=== PATIENT | male | born 1955 | race Caucasian/White ===

== ENCOUNTER 2018-05-26 10:24 | Emergency (ER) | payer MEDICARE ==
[~2018-05-26] VITALS: Ht 167.6 cm; Wt 70.0 kg
[~2018-05-26 10:24] MED LIST: HYDR25TA6 PO; MAG355OR14 PO; ONDA4TAB8 PO
[2018-05-26 10:29] VITALS: Ht 167.6 cm; Wt 70.0 kg
[2018-05-26] MEDS ORDERED: SOD CHLORIDE 0.9% 1,000 ML IV STA (11:05)
[2018-05-26] MEDS ORDERED: NIFE90TA21 PO (11:37)
[2018-05-26] MEDS ORDERED: LISI-471 PO (11:37)
[2018-05-26] MEDS ORDERED: METO100T11 PO (11:37)
[2018-05-26] MEDS ORDERED: CLON0.2T5 PO (11:38)
[2018-05-26] MEDS ORDERED: KETOROLAC 15 MG INJ IV STA (13:27)
[2018-05-26] MEDS ORDERED: ACETAMINOPHEN 325 MG TAB PO ONE (13:30)
--- NOTE | 2018-05-26 13:50 | ERD ---
ER Documentation Chief Complaint Chief Complaint BIB RA FOR EVAL OF BILATERAL LEG WEAKNESS STARTED THIS AM. NO TRAUMA. A&OX4 HPI This is a 63-year-old male with a past medical history of hypertension, GERD, chronic radicular lower back pain, homelessness, alcohol abuse who is presenting with reported lower extremity weakness. The patient is ambulatory without issue. Upon my questioning, the patient endorses chronic lower back pain which is led to pain with walking. However, he denies any focal deficits. He denies any weakness or numbness or tingling to his face or extremities. He has no saddle anesthesia. He does not endorse any retention or incontinence of urine or stool. The patient admits that he is hungry and came to the emergency department due to hunger as well. The patient also admits to chronic daily alcohol use, including today. The patient denies feeling sick recently. The patient denies fever or chills. The patient has had no headache or vision changes. The patient does not endorse neck pain. The patient denies lightheadedness or dizziness. The patient has had no chest pain or trouble breathing. The patient denies nausea or vomiting. The patient denies abdominal pain. The patient denies changes to bowel movements or urination. ROS All systems reviewed and are negative except as per history of present illness. Medications Home Meds Active Scripts Mag Hydrox/Al Hydrox/Simeth (Maalox Advanced Suspension) 355 Ml Oral.susp, 2 TSP PO TID PRN for PAIN, #24 OZ Prov:MARIA FERNANDA PARDO MD 01/23/18 Hydrochlorothiazide* (Hydrochlorothiazide*) 25 Mg Tab, 25 MG PO DAILY, #30 TAB Prov:MARIA FERNANDA PARDO MD 01/23/18 Reported Medications Clonidine Hcl* (Clonidine Hcl*) 0.2 Mg Tablet, 0.2 MG PO DAILY PRN for ELEVATED BLOOD PRESSURE, TAB 05/26/18 Nifedipine* (Nifedipine ER*) 90 Mg Tablet.sa, 90 MG PO DAILY, TAB.SA 05/26/18 Lisinopril* (Lisinopril*) 20 Mg Tablet, 20 MG PO BID, #30 TAB 05/26/18 Metoprolol Tartrate (Metoprolol Tartrate) 100 Mg Tablet, 100 MG PO BID, #60 TAB 05/26/18 Discontinued Scripts Ondansetron Hcl* (Zofran*) 4 Mg Tablet, 4 MG PO Q8H PRN for NAUSEA AND/OR VOMITING, #30 TAB Prov:MARIA FERNANDA PARDO MD 01/23/18 Allergies Allergies: Coded Allergies: No Known Allergy (Unverified , 10/28/17) PMhx/Soc History of Surgery: No Anesthesia Reaction: No Hx Neurological Disorder: No Hx Respiratory Disorders: No Hx Cardiac Disorders: Yes (Hypertension) Hx Psychiatric Problems: No Hx Miscellaneous Medical Probl: No Hx Alcohol Use: Yes (weekly) Hx Substance Use: No Hx Tobacco Use: Yes Smoking Status: Former smoker Physical Exam Vitals Vital Signs Date Temp Pulse Resp B/P (MAP) Pulse Ox O2 O2 Flow FiO2 Time Delivery Rate 05/26/18 97.7 73 18 176/86 95 10:29 (116) Physical Exam Const: No apparent distress, well-developed, dishevelled. Head: Normocephalic, Atraumatic Eyes: Normal Conjunctiva. Extraocular movements intact. Pupils equal, round and reactive to light ENT: Normal External Ears, Nose and Mouth. Neck: Full range of motion. No meningismus. Resp: Clear to auscultation bilaterally, No wheezes, rales or rhonchi Cardio: Regular rate and rhythm. No murmurs, rubs or gallops Abd: Soft, non tender, non distended. Normal bowel sounds Skin: No petechiae or rashes Back: No midline tenderness. No step-offs or deformities. No CVA tenderness Ext: No cyanosis, or edema Neur: Awake and alert, oriented 4. Cranial nerves intact. No facial droop. Normal strength, sensation and coordination. Psych: Normal Mood and Affect Result Diagram: 05/26/18 1140 05/26/18 1140 Results 24 hrs Laboratory Tests Test 05/26/18 11:40 05/26/18 11:57 White Blood Count 5.3 10^3/ul Red Blood Count 3.23 10^6/ul Hemoglobin 7.6 g/dl Hematocrit 27.4 % Mean Corpuscular Volume 84.8 fl Mean Corpuscular Hemoglobin 23.5 pg Mean Corpuscular Hemoglobin Concent 27.7 g/dl Red Cell Distribution Width 21.1 % Platelet Count 86 10^3/UL Mean Platelet Volume 9.7 fl Immature Granulocytes % 0.900 % Neutrophils % 72.2 % Lymphocytes % 18.8 % Monocytes % 5.1 % Eosinophils % 1.1 % Basophils % 1.9 % Nucleated Red Blood Cells % 0.0 /100WBC Immature Granulocytes # 0.050 10^3/ul Neutrophils # 3.8 10^3/ul Lymphocytes # 1.0 10^3/ul Monocytes # 0.3 10^3/ul Eosinophils # 0.1 10^3/ul Basophils # 0.1 10^3/ul Nucleated Red Blood Cells # 0.0 10^3/ul Prothrombin Time 12.5 Sec Prothrombin Time Ratio 1.0 INR International Normalized Ratio 0.92 Urine Color YELLOW Urine Clarity CLEAR Urine pH 5.0 Urine Specific [place] 1.013 Urine Ketones NEGATIVE mg/dL Urine Nitrite NEGATIVE mg/dL Urine Bilirubin NEGATIVE mg/dL Urine Urobilinogen 1+ mg/dL Urine Leukocyte Esterase NEGATIVE Giovanna/ul Urine Microscopic RBC 0 /HPF Urine Microscopic WBC 1 /HPF Urine Hemoglobin NEGATIVE mg/dL Urine Glucose NEGATIVE mg/dL Urine Total Protein 2+ mg/dl Sodium Level 146 mmol/L Potassium Level 4.6 mmol/L Chloride Level 107 mmol/L Carbon Dioxide Level 31 mmol/L Anion Gap 8 Blood Urea Nitrogen 15 mg/dl Creatinine 0.74 mg/dl Est Glomerular Filtrat Rate mL/min > 60 mL/min Glucose Level 96 mg/dl Calcium Level 8.6 mg/dl Troponin I 0.047 ng/ml Urine Opiates Screen Negative Urine Barbiturates Negative Urine Amphetamines Screen Negative Urine Benzodiazepines Screen Negative Urine Cocaine Screen Negative Urine Cannabinoids Positive Ethyl Alcohol Level 410.0 mg/dl POC Venous Lactate 2.2 mmol/L Current Medications Medications Dose Sig/Marcia Start Time Status Last (Trade) Ordered Route PRN Stop Time Admin Dose Reason Admin Sodium 1,000 ml @ Q1H STAT 05/26/18 DC 05/26/18 Chloride 1,000 mls/hr IV 11:05 05/26/18 11:46 12:04 Ketorolac 15 mg ONCE STAT 05/26/18 DC Tromethamine IV 13:27 05/26/18 (Toradol) 13:28 650 mg ONCE ONCE 05/26/18 DC Acetaminophen PO 13:30 05/26/18 (Tylenol 13:31 Tab) Procedures/MDM MDM The patient's presentation warrants further investigation. Previous medical records, if available, were reviewed. LABS The patient's laboratory testing was obtained and reviewed. No emergent treatment was required unless described below. CBC: No leukocytosis, low clinical suspicion for an infectious process. Normocytic anemia and thrombocytopenia, likely related to his chronic alcohol abuse. BMP: No E/o severe acidosis or alkalosis or renal failure or diabetic ketoacidosis PT/INR: No E/o significant coagulopathy Lactate: Elevated, likely related to poor nutrition and dehydration. Low clinical suspicion for sepsis. Troponin: No E/o acute ischemia Urine: No E/o acute infection or hematuria Tox: E/o alcohol abuse. E/o marijuana abuse. EKG EKG read by me: Rate/Rhythm: Sinus rhythm with PACs. Intervals: Normal Sultana: Normal Impression: No evidence of acute ischemia. IMAGING Imaging and Radiology interpretation reviewed. CXR IMPRESSION: Borderline versus mild cardiomegaly. Atherosclerosis of the aortic arch. Spondylosis of the thoracic spine. No evidence of active cardiopulmonary disease. Electronically viewed and signed by David Bergeron Physician on 05/26/2018 11:36 TREATMENT/DISPOSITION The patient presented initially for reported lower extremity weakness. The patient denies this to me. He is ambulatory without issue. The patient does have chronic sciatic low back pain related to a herniated disc. There is no evidence of cauda equina on exam. The patient was assessed for generalized weakness as well. I suspect that this is related to poor nutrition and chronic alcohol abuse. The patient does have sequelae of alcohol abuse including anemia and thrombocytopenia. These do not require emergent treatment. The patient's chest xray does not reveal pneumonia or pneumothorax or pleural effusions or pulmonary edema. She does not have a widened mediastinum and does not have signs or symptoms concerning for thoracic aortic aneurysm or dissection. The patient does not have pneumomediastinum or signs concerning for esophageal tear or rupture. The patient has no clinical or radiographic signs of pericardial effusion or tamponade. The patient does not have pneumoperitoneum and I have decreased suspicion of viscus perforation as possible referred pain. The patient does not have a history of heart failure and I have low suspicion for this. The patient does not have a diagnosis of COPD and is not wheezing today. The patient is not tachypneic or hypoxic. The patient is breathing comfortably and without pleuritic pain. The patient is not on hormonal therapy. The patient has no history of clotting or bleeding disorders. The patient has no calf tenderness. The patient has had no hemoptysis. I have decreased suspicion for PE. The patient's troponin and EKG are reassuring. I have low suspicion for acute coronary syndrome. The patient was treated with IV fluids in the emergency department. While the patient does have a slightly elevated lactic acidosis, I believe this to be related to dehydration, poor nutrition and alcoholism. I have low suspicion for an infectious etiology. The patient is afebrile with unremarkable vital signs. I do not suspect sepsis and I do not feel the patient requires a septic workup. The patient was treated with Tylenol and Toradol in the emergency department for his lower back pain. The patient will be given prescriptions for ibuprofen and prednisone. The patient was fed in the emergency department. Upon reevaluation of the patient, symptoms have improved. No emergent diagnoses were identified. At this time, I feel that the patient stable for discharge. The patient was instructed to follow-up with a primary care physician in 1-3 days. The patient will be given strict precautions with which to return to the emergency department. Prescriptions: Ibuprofen, prednisone The patient's blood pressure was elevated at greater than 120/80 while in the emergency department. The patient was otherwise stable with no evidence of hypertensive urgency or emergency. The patient does not require admission for blood pressure control. I have discussed with the patient the risks of hypertension. I have instructed the patient to return to the ER for any new or worsening symptoms including chest pain, shortness of breath, headache, blurred vision, confusion, nausea, vomiting or LOC. I have advised the patient to follow up with the primary care physician for outpatient monitoring and treatment for hypertension in 1-3 days. Disclaimer: Inadvertent spelling and grammatical errors are likely due to EHR/dictation software use and do not reflect on the overall quality of patient care. Note that the electronic time recorded on this note does not necessarily reflect the actual time of the patient encounter. Departure Diagnosis: Primary Impression: Chronic back pain Back pain location: low back pain Back pain laterality: bilateral Sciatica presence: with sciatica Sciatica laterality: bilateral sciatica Qualified Codes: M54.42 - Lumbago with sciatica, left side; M54.41 - Lumbago with sciatica, right side; G89.29 - Other chronic pain Additional Impressions: Weakness generalized Alcohol abuse Alcohol intoxication Complication of substance-induced condition: uncomplicated Qualified Codes: F10.920 - Alcohol use, unspecified with intoxication, uncomplicated Normocytic anemia Thrombocytopenia Lactic acidosis Dehydration Poor nutrition Condition: Stable RAHUL BECERRA MD May 26, 2018 13:49
[2018-05-26] MEDS ORDERED: IBUP-1542 PO (13:51)
[2018-05-26] MEDS ORDERED: PRED20TA PO (13:51)
[2018-05-26 16:45] VITALS: BP 129/75; PULSE 107; RESP 18
== END 2018-05-26 17:01 | disposition home or self-care (01) ==
LOC: E/R 10:24
DX: M54.42 Lumbago with sciatica, left side (principal); M54.41 Lumbago with sciatica, right side; M62.81 Muscle weakness (generalized); D64.9 Anemia, unspecified; D69.6 Thrombocytopenia, unspecified; E87.2 Acidosis; E86.0 Dehydration; E63.9 Nutritional deficiency, unspecified; F10.129 Alcohol abuse with intoxication, unspecified; I10 Essential (primary) hypertension; Z87.891 Personal history of nicotine dependence
CPT/HCPCS: 36415; 71045; 80048; 80307; 81001; 83605; 84484; 85025; 85610; 93005; 96374; 99285; J1885; J7030